=== PATIENT | male | born 1965 | race Caucasian/White ===

== ENCOUNTER 2019-05-04 16:21 | Emergency (ER) | payer MEDICAID, OTHER ==
[~2019-05-04] VITALS: Ht 167.6 cm; Wt 75.0 kg
[~2019-05-04 16:21] MED LIST: HYDR-523 PO
[2019-05-04] MEDS ORDERED: ACETAMINOPHEN 500MG TABLET PO NR (19:30)
[2019-05-04] MEDS ORDERED: TETANUS, DIPHTHERIA, PERTUSSIS VAC/PF 0.5ML (>7YR OLD) IM ONE (19:30)
[2019-05-04] MEDS ORDERED: IBUPROFEN 800MG TABLET PO NR (19:30)
[2019-05-04 21:03] VITALS: BP 146/77
== END 2019-05-04 21:04 | disposition home or self-care (01) ==
LOC: ER 16:21
DX: S68.120A Partial traumatic metacarpophalangeal amputation of right index finger, initial encounter (principal); W26.8XXA Contact with other sharp object(s), not elsewhere classified, initial encounter; Y93.89 Activity, other specified; Y92.89 Other specified places as the place of occurrence of the external cause; Z23 Encounter for immunization
CPT/HCPCS: 29130; 73140; 90471; 90715; 99283; Z7610

== ENCOUNTER 2020-08-12 06:29 | Emergency (ER) | payer OTHER ==
[~2020-08-12] VITALS: Ht 170.2 cm; Wt 82.0 kg
[2020-08-12 07:16] LABS: BASOPHILS % 0.4 % (0.0-2.0); EOSINOPHILS % 2.2 % (0.0-5.0); HEMATOCRIT. 45.2 % (42.0-52.0); HEMOGLOBIN. 15.5 g/dL (14.0-18.0); LYMPHOCYTES % 44.8 % (20.0-50.0); MEAN CORPUSCULAR HEMOGLOBIN 31.2 pg (28.0-32.0); MEAN CORPUSCULAR VOLUME 90.7 fL (80.0-94.0); MEAN PLATELET VOLUME 8.5 fl (7.4-10.4); NEUTROPHILS % 45.6 % (40.0-76.0); PLATELET 218 x1000/uL (130-400); RED BLOOD CELL COUNT 4.98 mill/uL (4.7-6.1); RED CELL DISTRIBUTION WIDTH 13.8 % (11.6-14.6)
[2020-08-12 07:22] LABS: CHLORIDE 107 mEq/L (98-107)
[2020-08-12] MEDS ORDERED: IOHEXOL-350 100 ML BOTTLE ONE (09:54)
[2020-08-12 14:49] VITALS: BP 110/65
== END 2020-08-12 15:00 | disposition short-term general hospital (02) ==
LOC: ER 06:44 → CANBEDREQ 19:53
DX: R07.89 Other chest pain (principal); M79.602 Pain in left arm; R00.2 Palpitations; J98.01 Acute bronchospasm; R46.2 Strange and inexplicable behavior; R91.8 Other nonspecific abnormal finding of lung field; R10.9 Unspecified abdominal pain
CPT/HCPCS: 36415; 71045; 71275; 80053; 83880; 84484; 85025; 93005; 99285; Q9967